=== PATIENT | female | born 1970 | race Caucasian/White ===

== ENCOUNTER 2022-07-20 10:15 | Day surgery (SDC) | payer OTHER ==
[2022-07-18 13:00] VITALS: BP 107/76
[~2022-07-20] VITALS: Ht 160 cm; Wt 109.1 kg
[~2022-07-20 10:15] MED LIST: SYNTHROID100 MCG PO; ZOLOFT100 MG PO
[2022-07-20 10:40] VITALS: BP 108/68
--- NOTE | 2022-07-20 12:18 | NUR ---
07/20/22 1218 Niki Hernandez 1212-PATIENT ARRIVED TO PACU ON 4L NC RR EVEN. PATIENT LAYING PRONE SR. IVF INFUSING. BANDAID TO BACK CDI. PATIENT DROWSY REACTIVE TO VERBAL STIMULI DENIES PAIN OR NAUSEA.
[2022-07-20 12:44] VITALS: BP 127/79
--- NOTE | 2022-07-26 10:26 | PATH ---
[facility] [address] [facility] [place], [place] [address] Signed SPECIMEN(S): A BONE MARROW - DECAL CLINICAL HISTORY: 51-year-old female with history of pelvic irradiation for cancer, now with pancytopenia. D61.818 (other pancytopenia) DIAGNOSIS SUMMARY: Peripheral blood - Mild leukopenia and thrombocytopenia. - No circulating blasts or atypical lymphocytes are identified. Bone marrow biopsy and aspiration: - Suboptimal specimen with no aspirate smears, touch prep smears, or clot section. - Biopsy is primarily soft tissue and subcortical bone with very limited scant marrow tissue, insufficient for full evaluation. - Suggestive of trace to MF-1 reticulin fibrosis. - No malignancy is identified in a limited specimen. - See Diagnostic Comment. DIAGNOSTIC COMMENT: The bone marrow is insufficient for full evaluation. In a very limited specimen, the myeloid and megakaryocytic lineages appear within normal limits. Trace to MF-1 reticulin fibrosis is noted. No malignancy is detected. If re-biopsy is performed, and if a repeat dry tap is encountered, please submit touch preps and include bone biopsy tissue in RPMI solution for flow cytometry analysis. Also, multiple bone biopsy cores in formalin would be helpful. 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 She received combined chemoradiation completed in Jan. In March 2022, she was noted to be mildly leukopenic with mild thrombocytopenia. PERIPHERAL BLOOD: HEMOGRAM (07/20/2022): WBC 3.2 K/ul, RBC 4.57 M/ul, HGB 13.0 g/dl, HCT 38.7%, MCV 84.8 fl, MCH 28.5 pg, MCHC 33.6 g/dl, RDW 15.5%, PLT 119 K/ul, MPV 8.1 fl. Absolute neutrophil count 1,300/ul. AUTOMATED DIFFERENTIAL COUNT: Neutrophils 42.1%, lymphocytes 47.1%, monocytes 10.1%, eosinophils 0.5%, basophils 0.2%. PATIENT NAME: STEVE ROSE PATHOLOGY DATE OF : 70 REPORT #: [id number] PHYSICIAN: GARY MCGOWAN PCP: DEANDRE QUINONES MD REPORT IS CONFIDENTIAL AND NOT TO BE RELEASED WITHOUT AUTHORIZATION [facility] [address] [place], [place] [address] Signed The red blood cells are normocytic and normochromic with minimal aniso-poikilocytosis. No tear-drop cells are noted. The neutrophils are unremarkable. Lymphocytes are composed of small mature appearing forms. Platelets appear decreased in number with a normal morphology. No platelet clumping or RBC microangiopathic effect identified. No blasts are identified. BONE MARROW: ASPIRATE SMEARS/TOUCH IMPRINT: No aspirate smears are submitted for evaluation. No touch prep smears are submitted for evaluation. BONE MARROW DIFFERENTIAL COUNT: In a very limited bone biopsy, the erythroid, myeloid, and megakaryocytic lineages have a normal morphology. The M:E ratio appears within normal limits. In this limited specimen, the megakaryocytes appear normal in number and morphology. Cellularity cannot be reliably evaluated but in this limited specimen, the cellularity is estimated at 30% BONE MARROW CORE BIOPSY/ASPIRATE CLOT/CELL BLOCK: No aspirate clot section is submitted for evaluation. The core biopsy is composed of fibroconnective tissue, subcortical bone, and focal marrow elements and is very sub-optimal for full evaluation. The core biopsy demonstrates unremarkable trabecular bone. Focal hemosiderin granules are noted. The cellularity cannot be accurately determined, but in a limited specimen, appears to be 30%. The erythroid precursors are within normal limits with essentially unremarkable maturation. The myeloid precursors are unremarkable with no significant dyspoiesis. Blasts are not increased. Megakaryocytes appear normal in number and in morphology. No granulomas, atypical lymphoid aggregates or foreign malignant cells are detected. SPECIAL STAINS (with adequate controls): - iron (aspirate smear): No marrow smears are submitted for review. - iron (biopsy): Negative by Prussian Blue stain. The specimen was decalcified which could affect the staining. - PAS (block A1): Normal number and morphology of megakaryocytes in a limited specimen. - Reticulin (block A1): trace to MF-1 reticulin fibrosis in a limited specimen. FLOW CYTOMETRY: Peripheral blood, flow cytometry: PLEASE NOTE THIS FLOW SPECIMEN IS FROM PERIPHERAL BLOOD AND NOT BONE MARROW. - No diagnostic abnormal populations are identified by flow cytometry. PATIENT NAME: STEVE ROSE PATHOLOGY DATE OF : 70 REPORT #: [id number] PHYSICIAN: GARY PATHOLOGY PCP: DEANDRE QUINONES MD REPORT IS CONFIDENTIAL AND NOT TO BE RELEASED WITHOUT AUTHORIZATION [facility] [address] [facility] [place], [place] [address] Signed - See Comment. COMMENT: The majority of the gated lymphocytes are T-cells with a normal marking pattern. 6% of gated cells are NK/T cells which is typically a reactive process. The B-cells are unremarkable with no light chain restriction or aberrant marking. Blasts and plasma cells are not detected. FLOW CYTOMETRY ANALYSIS: FLOW DIFFERENTIAL (% Total CD45 vs. SSC gating): Myeloid 48%; Lymphoid 41%; Monocyte 6%; Cell Count: 4.8 x 10*3/uL. POPULATION ANALYSIS: BLASTS: Analysis of the dim CD45 gate reveals no immature cell population. LYMPHOID CELLS: The lymphocyte gate comprises 41% of total events and includes 76% T-cells with a CD4:CD8 ratio of 1.4:1. A subset T-cell population is detected (13% of lymphocytes, 6% of total events) demonstrating co-expression of CD3 and CD56. 3% of lymphocytes are polyclonal B-cells with a kappa:lambda ratio of 1.5:1. The remainders are NK-cells. MYELOID CELLS: The myeloid population comprises 48% of the total events. No aberrant immunophenotypic expression is detected. MONOCYTES: The monocyte population comprises 6% of the total events. Monocytes are not increased. No aberrant immunophenotypic expression is detected. PLASMA CELLS: Plasma cells are not detected. ANTIBODIES USED: KAPPA, LAMBDA, CD20, CD10, CD19, CD23, CD38, CD16, CD56, CD8, CD5, CD2, CD4, CD7, CD3, CD14, CD33, CD13, HLADR, CD34, CD117, CD15, CD45: TOTAL ANTIBODIES USED: 23. DKW FINAL DIAGNOSIS PERFORMED BY: Jose Salinas MD, Jul 21 2022 3:48PM GROSS DESCRIPTION: The specimen, labeled and designated "Rose, bone marrow core biopsy," is received in formalin and consists of a pink to red-brown core of bone (2.6 cm in length x up to 0.3 cm in diameter). The specimen is submitted entirely in cassette (A1) following decalcification in Immunocal. VB (under the direct supervision of a pathologist) The Gross Description was prepared using a voice recognition system. The report was reviewed for accuracy; however, sound-alike word errors, addition and/or deletions may occur. If there is any question about this report, please contact Client Services. PATIENT NAME: STEVE ROSE PATHOLOGY DATE OF : 70 REPORT #: [id number] PHYSICIAN: GARY PATHOLOGY PCP: DEANDRE QUINONES MD REPORT IS CONFIDENTIAL AND NOT TO BE RELEASED WITHOUT AUTHORIZATION [facility] [address] [place], [place] [address] Signed ADDITIONAL NOTES: Immunohistochemical and/or in situ hybridization studies were performed on this case with the appropriate positive controls that react as expected. This test was developed and its performance characteristics determined by [facility]. It has not been cleared or approved by the U.S. Food and Drug Administration. The FDA has determined that such clearance or approval is not necessary. This test is used for clinical purposes. It should not be regarded as investigational or for research. [facility] is certified under the Clinical Laboratory Improvement Amendments of 1988 (CLIA) as qualified to perform high complexity clinical laboratory testing. This assay has not been validated for specimens that have been decalcified. In this case, certain antibodies were performed by both immunohistochemistry and flow cytometry analysis because flow cytometry analysis did not fully explain all the light microscopic findings. Immunohistochemistry aided in the analysis. Both methods are deemed medically necessary in this case. This test was developed and its performance characteristics determined by [facility]. It has not been cleared or approved by the US Food and Drug Administration. The FDA does not require this test to go through premarket FDA review. This test is used for clinical purposes. It should not be regarded as investigational or for research. This laboratory is certified under the Clinical Laboratory Improvement Amendments (CLIA) as qualified to perform high complexity clinical laboratory testing. PERFORMING LABORATORY: The technical preparation was performed by [facility], [address] [place] [address] (CLIA#: [id number]). Professional interpretation was performed by [facility], [address] [place] [id number] (CLIA#: [id number]). The technical component was performed by [facility], [address] [place] [id number] (CLIA# [id number]). Professional interpretation was performed by [facility], [address] [place] [id number] (CLIA#: [id number]). IMAGES: PATIENT NAME: STEVE ROSE PATHOLOGY DATE OF : 70 REPORT #: [id number] PHYSICIAN: GARY MCGOWAN PCP: DEANDRE QUINONES MD REPORT IS CONFIDENTIAL AND NOT TO BE RELEASED WITHOUT AUTHORIZATION [address] [address] Signed A: [id number] A: [id number] Diagnostician: Jose Salinas MD Pathologist Electronically Signed 07/26/2022 Copies: ~ PATIENT NAME: STEVE ROSE PATHOLOGY DATE OF : 70 REPORT #: [id number] PHYSICIAN: GARY MCGOWAN PCP: DEANDRE QUINONES MD REPORT IS CONFIDENTIAL AND NOT TO BE RELEASED WITHOUT AUTHORIZATION
== END 2022-07-20 13:00 | disposition home or self-care (01) ==
LOC: DS 10:15 → OPS 10:15 → DS 12:00 → OPS 12:00
PROVIDERS: ATTEND Specialist
PROC: 079T3ZX Drainage of Bone Marrow, Percutaneous Approach, Diagnostic (ICD-10-PCS; principal; 2022-07-20 12:00)
DX: D61.818 Other pancytopenia (principal)
CPT/HCPCS: 01112; 36415; 85025; J2704; J7121